=== PATIENT | female | born 1940 | race Caucasian/White ===

== ENCOUNTER → 2017-05-03 | Outpatient (CLI) | payer OTHER, MEDICARE ==
[~2017-05-03] MED LIST: ASPIRIN E.C. 8181 MG PO; BUFFERED ASPIR325 M1 PO; CALCIUM + D 6001 TA1 PO; CALTRATE-600 W600 MG PO; COLACE 100100 MG/CAP PO; LOPRESSOR HCT 51 TAB PO; METOPROLOL TART50 MG PO; MULTIPLE VITAMI1 TAB PO; MVI PO; PLAVIX 75MG TAB75 MG PO; PROTONIX 40MG T40 MG PO; TOPROL XL100 MG PO; VASOTEC10 MG PO; ZOCOR 80MG80 MG PO; ZOCOR40 MG PO
[2017-05-03 17:28] LABS: BASO # 0.1 (0.0-0.2); BASO % 0.9 % (0.0-2.0); EOS # 0.6 (0.0-0.7); EOS % 6.9 % (0-4.0); GRAN # 4.9 (1.4-6.5); GRAN % 61.6 % (42.2-75.2); LYMPH # 1.5 (1.2-3.4); LYMPH % 19.2 % (20.0-51.0); MEAN CELL VOLUME 95 fl (80.0-100.0); MEAN CORPUSCULAR HEMOGLOBIN 31 pg (27.0-31.0); MEAN CORPUSCULAR HGB CONC 33 g/dl (33.0-37.0); MONO # 0.9 (0.1-0.6); MONO % 11.1 % (1.7-9.3); PLATELET COUNT 239 K/mm3 (130-400); RED BLOOD COUNT 3.88 M/mm3 (4.10-5.30)
[2017-05-03 17:31] LABS: HEMATOCRIT 36.8 % (37.0-47.0)
[2017-05-03 17:46] LABS: CREATININE, serum 0.86 mg/dL (0.52-1.25)
== END ==
LOC: COL.LAB 16:46
PROVIDERS: Internal Medicine Interventional Cardiology
DX: I70.213 Atherosclerosis of native arteries of extremities with intermittent claudication, bilateral legs (principal)

== ENCOUNTER → 2018-05-03 | Outpatient (CLI) | payer BC, MEDICARE ==
[~2018-05-03] MED LIST changes: -CALCIUM + D 6001 TA1 PO; +CALCIUM 600MG+D1 TAB PO; +CEPHALEXIN500 M1 PO; +EFFIENT5 MG PO; +LIPITOR 40MG TA40 MG PO; +LOPRESSOR 550 MG/TAB PO; -METOPROLOL TART50 MG PO; +MULTIPLE VITAMI1 CAP PO; -MULTIPLE VITAMI1 TAB PO; +NITROSTAT0.4 MG/TAB SL; +VASOTEC 10M10 MG/TAB PO; -VASOTEC10 MG PO
[2018-05-03 13:12] LABS: POTASSIUM 3.6 mmol/L (3.4-5.0)
[2018-05-03 14:04] LABS: URINE PROTEIN:CREAT RATIO 0.23 (0.00-0.14)
[2018-05-04 00:25] LABS: URINE MICROALBUMIN 0.6 mg/dL (0.0-1.7)
== END ==
LOC: COL.LAB 10:48
PROVIDERS: Internal Medicine Interventional Cardiology
DX: I10 Essential (primary) hypertension (principal)

== ENCOUNTER → 2018-05-18 | Outpatient (CLI) | payer BC, MEDICARE | LOC: COL.RAD 10:00 | DX: I70.1 Atherosclerosis of renal artery (principal); K55.1 Chronic vascular disorders of intestine; I10 Essential (primary) hypertension | CPT/HCPCS: Q9967 ==

== ENCOUNTER → 2018-12-19 | Outpatient (CLI) | payer BC, MEDICARE ==
[2018-12-19 12:54] LABS: ARTERIAL BLD GAS O2 SATURATION 93.6 % (92-100); ARTERIAL BLD GAS TCO2 CT 29.2; ARTERIAL BLOOD GAS BASE EXCESS 4.3 (-2-2); ARTERIAL BLOOD GAS HCO3 28.1 meq/L (22-26); ARTERIAL BLOOD GAS PCO2 38.8 mmHg (35-45); ARTERIAL BLOOD GAS PO2 71.9 mmHg (80-100); ARTERIAL BLOOD GAS pH 7.48 (7.35-7.45)
[2018-12-19 13:23] LABS: HEMATOCRIT 38.7 % (37.0-47.0); HEMOGLOBIN 12.8 g/dl (12.5-16.0); MEAN CELL VOLUME 93 fl (80.0-100.0); MEAN CORPUSCULAR HEMOGLOBIN 31 pg (27.0-31.0); MEAN CORPUSCULAR HGB CONC 33 g/dl (33.0-37.0); MEAN PLATELET VOLUME 8.9 fl (7.4-10.4); PLATELET COUNT 193 K/mm3 (130-400); RED BLOOD COUNT 4.18 M/mm3 (4.10-5.30); REDCELL DISTRIBUTION WIDTH-CV 13.7 % (11.5-14.5)
[2018-12-19 13:33] LABS: CALCIUM 9.5 mg/dL (8.4-10.2); CREATININE, serum 0.5 (0.52-1.25); POTASSIUM 3.5 mmol/L (3.4-5.0)
[2018-12-19 13:44] LABS: TROPONIN-I 0.026 ng/mL (0.000-0.035)
== END ==
LOC: COL.RAD 12:19
PROVIDERS: Internal Medicine Interventional Cardiology
DX: R06.02 Shortness of breath (principal); R06.00 Dyspnea, unspecified; Z95.828 Presence of other vascular implants and grafts; Z95.0 Presence of cardiac pacemaker

== ENCOUNTER → 2018-12-19 | Outpatient (CLI) | payer BC, MEDICARE | LOC: COL.RAD 14:50 | DX: R06.02 Shortness of breath (principal); R79.1 Abnormal coagulation profile | CPT/HCPCS: Q9967 ==

== ENCOUNTER 2019-04-12 12:27 | Day surgery (SDC) | payer BC, MEDICARE ==
[~2019-04-12] VITALS: Ht 155 cm; Wt 70.4 kg
[2019-04-12] VITALS (7 sets, daily range): BP systolic 107–139; BP diastolic 47–62; PULSE 62–69; TEMP 98.3
[2019-04-12] MEDS ORDERED: ISOSORBIDE MON120 MG PO (12:39)
[2019-04-12] MEDS ORDERED: BYSTOLIC20 MG PO (12:39)
[2019-04-12] MEDS ORDERED: PLAVIX 75MG TAB75 MG PO (12:39)
[2019-04-12] MEDS ORDERED: MINOXIDIL 2.5 PO (12:40)
[2019-04-12] MEDS ORDERED: HCTZ 25MG TAB25 MG PO (12:41)
[2019-04-12] MEDS ORDERED: ELIQUIS 2.5 PO (12:41)
[2019-04-12] MEDS ORDERED: NORVASC 10MG10 MG PO (12:42)
[2019-04-12] MEDS ORDERED: LASIX 20MG TABL20 MG PO (12:46)
[2019-04-12] MEDS ORDERED: ZESTRIL 5MG5 MG PO (13:10)
[2019-04-12] MEDS ORDERED: LIPITOR 80MG80 MG PO (13:10)
[2019-04-12 13:17] LABS: HEMOGLOBIN 12.2 g/dl (12.5-16.0); MEAN CELL VOLUME 89 fl (80.0-100.0); MEAN CORPUSCULAR HEMOGLOBIN 30 pg (27.0-31.0); MEAN CORPUSCULAR HGB CONC 33 g/dl (33.0-37.0); MEAN PLATELET VOLUME 9.3 fl (7.4-10.4); PLATELET COUNT 216 K/mm3 (130-400); RED BLOOD COUNT 4.11 M/mm3 (4.10-5.30); REDCELL DISTRIBUTION WIDTH-CV 14.9 % (11.5-14.5)
[2019-04-12 13:24] LABS: HEMATOCRIT 36.7 % (37.0-47.0)
[2019-04-12 13:34] LABS: INR 1.1 (0.8-3.0); PROTHROMBIN TIME 12.3 SECONDS (9.7-12.8)
[2019-04-12 14:10] LABS: CREATININE, serum 0.5 (0.52-1.25)
--- NOTE | 2019-04-12 14:28 | NUR ---
SEE MERGE REPORT FOR MEDICATION ADMINISTRATION TIMES WELL INTRA/POST SEDATION ASSESSMENTS. MD NOTIFIED THAT CMP RESULTS HAVE NOT RESULTED AND MD GAVE ORDER TO BRING PATIENT BACK FOR GENERATOR CHANGE AT THIS TIME.
--- NOTE | 2019-04-12 15:35 | NUR ---
Back from fish net maker by bed. Alert and oriented, denies pain and needs at this time. Dressing to left upper chest CD&I. VSS
--- NOTE | 2019-04-12 16:33 | NUR ---
INT discontinued intact. VSS.
--- NOTE | 2019-04-12 16:49 | NUR ---
Discharge instructions given. Transferred to private car by ghazala
== END 2019-04-12 16:50 | disposition home or self-care (01) ==
LOC: COL.CAR 12:27
PROVIDERS: Internal Medicine Interventional Cardiology
DX: I25.10 Atherosclerotic heart disease of native coronary artery without angina pectoris (principal); I48.0 Paroxysmal atrial fibrillation; E78.5 Hyperlipidemia, unspecified; I87.2 Venous insufficiency (chronic) (peripheral); I70.213 Atherosclerosis of native arteries of extremities with intermittent claudication, bilateral legs; I10 Essential (primary) hypertension; Z45.010 Encounter for checking and testing of cardiac pacemaker pulse generator [battery]; Z79.01 Long term (current) use of anticoagulants; Z79.02 Long term (current) use of antithrombotics/antiplatelets; Z95.2 Presence of prosthetic heart valve
CPT/HCPCS: J0690; J2250; J3010; J7030

== ENCOUNTER 2019-11-19 10:38 | Inpatient (IN) | payer MEDICARE ==
[~2019-11-19] VITALS: Ht 162.6 cm; Wt 68.8 kg
[~2019-11-19 10:38] MED LIST changes: +BYSTOLIC20 MG PO; +ELIQUIS 2.5 PO; +HCTZ 25MG TAB25 MG PO; +ISOSORBIDE MON120 MG PO; +LASIX 20MG TABL20 MG PO; +LIPITOR 80MG80 MG PO; +MINOXIDIL 2.5 PO; +NORVASC 10MG10 MG PO; +ZESTRIL 10MG10 MG PO
[2019-11-19 11:50] LABS: CALCIUM 9.1 mg/dL (8.4-10.2); CREATININE, serum 0.57 (0.52-1.25); MAGNESIUM 1.9 mg/dL (1.6-2.3); POTASSIUM 4.1 mmol/L (3.4-5.0)
[2019-11-19 11:52] VITALS: BP 123/52; PULSE 71; TEMP 98
--- NOTE | 2019-11-19 13:46 | NUR ---
VERBAL ORDER FROM DR INGRAM FOR 12 LEAD EKG @ 1700 11/19/19. ORDER ENTERED RT NOTIFIED. PRIMARY NURSE NOTIFIED.
[2019-11-19 16:38] VITALS: BP 142/52; PULSE 75; TEMP 98.3
--- NOTE | 2019-11-19 18:59 | NUR ---
Patient is a direct admin from home to start Sodalol today. Denies any pain at this time Initiall EKG QTc was 527. Dr Gallagher requested for Dr. Steinberg consult. Dr Steinberg was informed of the EKG. EKG was reordered for 5hours later. New EKG QTc is 541. Dr Steinberg said he will put a order in for patient discharge. Report given to next shift RN.
[2019-11-19 19:59] VITALS: BP 155/77; PULSE 72; TEMP 98.2
--- NOTE | 2019-11-19 20:10 | NUR ---
Patient signed discharge paperwork. All questions answered. Assessment complete. Lungs clear. Heart sounds irregular. Bowels active. No edema. Patient had no IV access. Ride called. Denies other needs at this time. Will take via wheelchair once ride arrives.
--- NOTE | 2019-11-19 20:30 | NUR ---
Taken by HOME ADMINISTRATOR to car at this time.
== END 2019-11-19 20:30 | disposition home or self-care (01) | DRG 310 ==
LOC: MEDICAL 10:38
PROVIDERS: ADMIT Internal Medicine Interventional Cardiology
DX: I48.19 Other persistent atrial fibrillation (principal); I25.10 Atherosclerotic heart disease of native coronary artery without angina pectoris; I10 Essential (primary) hypertension; I73.9 Peripheral vascular disease, unspecified; Z79.02 Long term (current) use of antithrombotics/antiplatelets; Z79.01 Long term (current) use of anticoagulants; Z95.0 Presence of cardiac pacemaker; Z95.2 Presence of prosthetic heart valve; Z95.5 Presence of coronary angioplasty implant and graft

== ENCOUNTER → 2021-07-12 | Outpatient (CLI) | payer MEDICARE ==
[2021-07-12 16:37] LABS: CALCIUM 9.5 mg/dL (8.4-10.2); CREATININE, serum 0.65 mg/dL (0.57-1.11); POTASSIUM 3.5 mmol/L (3.5-4.5); TROPONIN-I 0.019 ng/mL (0.00-0.033)
== END ==
LOC: ZCOL.LAB 14:32
PROVIDERS: Nurse Practitioner
DX: R06.02 Shortness of breath (principal)

== ENCOUNTER → 2021-11-16 | Outpatient (CLI) | payer MEDICARE ==
[2021-11-16 18:18] LABS: ALBUMIN 3.8 gm/dL (3.4-4.8); BILIRUBIN,TOTAL 1.6 mg/dL (0.2-1.2); CALCIUM 8.4 mg/dL (8.4-10.2); CREATININE, serum 0.7 mg/dL (0.57-1.11); POTASSIUM 3.1 mmol/L (3.5-4.5); TOTAL PROTEIN 7.5 gm/dL (6.2-8.1)
[2021-11-16 18:24] LABS: TROPONIN-I 0.015 ng/mL (0.00-0.033)
== END ==
LOC: ZCOL.LAB 16:57
PROVIDERS: Nurse Practitioner
DX: Z01.812 Encounter for preprocedural laboratory examination (principal); R07.89 Other chest pain; R10.13 Epigastric pain; I73.9 Peripheral vascular disease, unspecified

== ENCOUNTER 2022-03-21 07:27 | Emergency (ER) | payer MEDICARE ==
[~2022-03-21] VITALS: Ht 154.9 cm; Wt 68.6 kg
[2022-03-21 07:44] VITALS: TEMP 97.5
[2022-03-21 08:47] LABS: HEMOGLOBIN 12.8 g/dl (12.5-16.0); MEAN CELL VOLUME 93 fl (80.0-100.0); MEAN CORPUSCULAR HEMOGLOBIN 31 pg (27-31); MEAN CORPUSCULAR HGB CONC 33 g/dl (33.0-37.0); MEAN PLATELET VOLUME 9.5 fl (7.4-10.4); PLATELET COUNT 203 K/mm3 (130-400); RED BLOOD COUNT 4.19 M/mm3 (4.10-5.30); REDCELL DISTRIBUTION WIDTH-CV 14.1 % (11.5-14.5)
[2022-03-21 09:04] LABS: BILIRUBIN,TOTAL 1.6 mg/dL (0.2-1.2); CREATININE, serum 0.7 mg/dL (0.57-1.11); POTASSIUM 3.1 mmol/L (3.5-4.5); TOTAL PROTEIN 7.6 gm/dL (6.2-8.1)
[2022-03-21 09:12] LABS: TROPONIN-I 0.01 ng/mL (0.00-0.033)
[2022-03-21 09:34] LABS: BAND 4 % (0-10); LYMPHOCYTE 5 % (20.0-51.0); NEUTROPHILS 86 % (42.0-75.2); PLATELET ESTIMATE NORMAL (NORMAL)
[2022-03-21] MEDS ORDERED: NORCO 325 MG-51 TAB PO (09:38)
[2022-03-21 10:23] VITALS: BP 116/42; PULSE 60
== END 2022-03-21 10:24 | disposition home or self-care (01) ==
LOC: COL.ER 07:27
PROVIDERS: Emergency Medicine
DX: K80.20 Calculus of gallbladder without cholecystitis without obstruction (principal); E87.6 Hypokalemia; R74.01 Elevation of levels of liver transaminase levels; E80.7 Disorder of bilirubin metabolism, unspecified; Z20.822 Contact with and (suspected) exposure to COVID-19
CPT/HCPCS: J1885; J2270; J2405; J7040

== ENCOUNTER 2022-04-07 12:47 | Day surgery (SDC) | payer MEDICARE ==
[~2022-04-07] VITALS: Ht 162.6 cm; Wt 66.7 kg
[2022-04-07] VITALS (10 sets, daily range): BP systolic 119–174; BP diastolic 31–58; PULSE 59–90; TEMP 97.6–98.9
[~2022-04-07 12:47] MED LIST changes: +NORCO 325 MG-51 TAB PO
[2022-04-07] MEDS ORDERED: KLOR-CON SPRIN10 MEQ PO (14:46)
[2022-04-07] MEDS ORDERED: CORDARONE200 MG/TAB PO (14:47)
[2022-04-07] MEDS ORDERED: [UNRECOGNIZED DRUG - OTHER] (14:49)
[2022-04-07] MEDS ORDERED: NORCO 325 MG-51 TAB PO (15:25)
--- NOTE | 2022-04-07 18:45 | NUR ---
REPORT GIVEN AT BEDSIDE WITH SCOOTER PARRA. PT IN BED, POST ROBOTIC ALIDA, SITES TO ABD X5, GLUED AND DRY. PT DROWSY. IVF INFUSING TO LEFT HAND WITHOUT PROBLEM.
--- NOTE | 2022-04-07 21:30 | NUR ---
PT EATING SMALL BITES OF SANDWICH. HS MEDS GIVEN WITH NORCO 1 TAB PO FOR PAIN. IVF INFUSING TO LEFT HAND WITHOUT REDNESS OR SWELLING. PT WILL BE NPO AFTER MIDNIGHT FOR ERCP.
[2022-04-08] VITALS (10 sets, daily range): BP systolic 94–135; BP diastolic 32–72; PULSE 59–68; TEMP 98.1–98.9
--- NOTE | 2022-04-08 00:27 | NUR ---
PT UP TO BATHROOM, VOIDS WITHOUT PROBLEM, BACK TO BED WITH ONE ASSIST.
--- NOTE | 2022-04-08 00:57 | NUR ---
PT CONTINUES TO COMPLAIN OF UPPER ABD PAIN, DILAUDID 0.25MG IVP GIVEN AT THIS TIME.
--- NOTE | 2022-04-08 01:25 | NUR ---
PT RESTING COMFORTABLY AFTER DILAUDID.
[2022-04-08 06:11] LABS: HEMOGLOBIN 12.2 g/dl (12.5-16.0); MEAN CELL VOLUME 91 fl (80.0-100.0); MEAN CORPUSCULAR HEMOGLOBIN 30 pg (27-31); MEAN CORPUSCULAR HGB CONC 33 g/dl (33.0-37.0); MEAN PLATELET VOLUME 8.9 fl (7.4-10.4); PLATELET COUNT 263 K/mm3 (130-400); RED BLOOD COUNT 4.03 M/mm3 (4.10-5.30); REDCELL DISTRIBUTION WIDTH-CV 13.6 % (11.5-14.5)
[2022-04-08 06:22] LABS: HEMATOCRIT 36.7 % (37.0-47.0)
[2022-04-08 06:42] LABS: ALBUMIN 3.3 gm/dL (3.4-4.8); BILIRUBIN,TOTAL 1.6 mg/dL (0.2-1.2); CALCIUM 9.1 mg/dL (8.4-10.2); CREATININE, serum 0.75 mg/dL (0.57-1.11); POTASSIUM 4.2 mmol/L (3.5-4.5); TOTAL PROTEIN 6.9 gm/dL (6.2-8.1)
[2022-04-08 06:46] LABS: BAND 3 % (0-10); LYMPHOCYTE 8 % (20.0-51.0); NEUTROPHILS 86 % (42.0-75.2); PLATELET ESTIMATE NORMAL (NORMAL)
--- NOTE | 2022-04-08 08:11 | NUR ---
PT A&OX3 RESTING IN BED. MORNING MEDS GIVEN PER ANESTHESIA AND ASSESSMENT COMPLETED. PT RATES PN IN ABD A 01/11. LR RUNNING AT 75 ML/HR IN LEFT HAND. VS STABLE. PT NPO FOR ERCP THIS AFTERNOON. SCDS ON BLE. NO OTHER NEEDS AT THIS TIME. CALL LIGHT WITHIN REACH.
--- NOTE | 2022-04-08 12:40 | NUR ---
Initial visit; Patient thanked [employer] Driver for stopping. Tammi needed help with her tv. [employer] Driver suggested she have a nurse who understands the system to help her. [employer] Driver wished Tammi well and God's blessings.
--- NOTE | 2022-04-08 14:07 | NUR ---
PT BROUGHT DOWN BY BED FOR ERCP BY FIDEL CAST.
--- NOTE | 2022-04-08 14:14 | NUR ---
metal storage worker met with patient to complete intake and discuss discharge plan. Patient reports that she lives at home alone in [place]. She is independent with her ADL's and does not utilize any DME to assist with mobility. Patient has no home oxygen needs. PCP is and she utilizes [facility] for prescriptions. Patient reports that she does have a DPOA-HC established listing her friend/neighbor Mario ([phone]). DPOA-HC unable to be located in the patient's EMR. Phone call made to PCP office, and they do have one. Request made to have it faxed to the surgical unit and fax number provided. Patient is planning on returning home once medically ready with no concerns. DIscharge plan: Home
--- NOTE | 2022-04-08 15:27 | NUR ---
Patient's DPOA-HC and living will arrived via fax. On her DPOA-HC it does list Mario Euceda ([phone]).
--- NOTE | 2022-04-08 15:43 | NUR ---
Pt has arrived to the floor following ERCP. Pt reports that she feels much better, no more pain, just a little sore. Diastolic BP is low, but consistent with procedure. Pt is alert and oriented, call light within reach
--- NOTE | 2022-04-08 17:54 | NUR ---
DISCHARGE INSTRUCTIONS GIVEN TO PT WITH UNDERSTANDING. INT DISCTONUED. PT TO CALL FRIEND TO COME PICK HER UP.
== END 2022-04-08 17:15 | disposition home or self-care (01) ==
LOC: SDCO 12:47 → SURG 12:47 → SDCO 15:00 → SURG 19:33 → SDCO 04-08 17:15
PROVIDERS: Surgery
DX: K80.00 Calculus of gallbladder with acute cholecystitis without obstruction (principal); K80.50 Calculus of bile duct without cholangitis or cholecystitis without obstruction; K31.9 Disease of stomach and duodenum, unspecified
CPT/HCPCS: OP; C1769; J0690; J1100; J1170; J1610; J1885; J2405; J2543; J2704; J7120; Q9967